=== PATIENT | male | born 1970 | race Caucasian/White ===

== ENCOUNTER 2016-09-28 06:55 | Emergency (ER) | payer BC ==
[~2016-09-28] VITALS: Ht 175.3 cm; Wt 115.4 kg
[~2016-09-28 06:55] MED LIST: AMITRIPTYLINE H25 MG PO; BENADRYL50 MG PO; DILTIAZEM 24HR360 M1 PO; FIORICET 50-301 EACH PO; FUROSEMIDE80 MG PO; GEMFIBROZIL600 MG PO; LEXAPRO20 MG PO; METOPROLOL SUCC25 MG PO; MICRO-K10 ME2 PO; ROXICODONE5 MG PO; SPRIX1 EACH BOTH NARES; ULTRAM50 MG PO
[2016-09-28 07:46] LABS: ADD MIUA? YES; BILIRUBIN NEGATIVE; BLOOD MODERATE; COLOR AMBER ((YELLOW)); GLUCOSE (STRIP) NEGATIVE; KETONES NEGATIVE; LEUKOCYTES NEGATIVE; NITRITE POSITIVE; PROTEIN (STRIP) NEGATIVE; SPECIFIC GRAVITY 1.024 (1.000-1.030)
[2016-09-28 07:49] LABS: BACTERIA NONE SEEN /HPF; EPITHELIAL CELLS NONE SEEN /HPF; MUCUS 2+ /LPF; RED BLOOD CELLS TNTC /HPF (0-5); WHITE BLOOD CELLS 0-5 /HPF (0-5)
[2016-09-28 08:08] LABS: CHLORIDE 107 mEq/L (99-109); POTASSIUM 4.3 mEq/L (3.7-5.4); SODIUM 142 mEq/L (136-147)
[2016-09-28 08:10] LABS: GLUCOSE 106 mg/dL (70-99)
[2016-09-28 08:11] LABS: ANION GAP 10 MEQ/L (2-14)
[2016-09-28 08:14] LABS: GFR ESTIMATE (CALCULATED) > 59 mL/min/
[2016-09-28 08:54] LABS: UREA NITROGEN (BUN) 22 mg/dL (9-23)
[2016-09-28] MEDS ORDERED: NORCO 5/3251 TABLET PO (09:19)
[2016-09-28] MEDS ORDERED: ZOFRAN ODT8 MG PO (09:19)
[2016-09-28] MEDS ORDERED: FLOMAX0.4 MG PO (09:19)
[2016-09-28 09:31] VITALS: BP 135/82
== END 2016-09-28 09:40 | disposition home or self-care (01) ==
LOC: EME 06:55
PROVIDERS: Physician Assistant
DX: N20.0 Calculus of kidney (principal); Z87.442 Personal history of urinary calculi; I10 Essential (primary) hypertension; Z87.891 Personal history of nicotine dependence
CPT/HCPCS: 74176; 80048; 81003; 99281; 99284; J1885; J7030

== ENCOUNTER 2016-12-27 20:21 | Emergency (ER) | payer OTHER, BC ==
[~2016-12-27] VITALS: Ht 175.3 cm; Wt 112.4 kg
[~2016-12-27 20:21] MED LIST changes: +FLOMAX0.4 MG PO; +NORCO 5/3251 TABLET PO; +ZOFRAN ODT8 MG PO
[2016-12-27 21:41] VITALS: BP 145/98
== END 2016-12-27 21:42 | disposition home or self-care (01) ==
LOC: EME 20:21
DX: S16.1XXA Strain of muscle, fascia and tendon at neck level, initial encounter (principal); V47.5XXA Car driver injured in collision with fixed or stationary object in traffic accident, initial encounter; Z88.1 Allergy status to other antibiotic agents
CPT/HCPCS: 99281; 99282